=== PATIENT | male | born 1945 ===

== ENCOUNTER 2025-02-21 06:15 | Day surgery (SDC) | payer OTHER, SELFPAY ==
[2025-02-21 07:13] LABS: Glucose - Point of Care 98 mg/dl (70-99)
[2025-02-21 07:20] VITALS: BMI 30.6
[2025-02-21 07:21] VITALS: BMI 30.6
[2025-02-21 07:22] VITALS: BP 135/78
[2025-02-21 10:17] VITALS: BP 77/55
[2025-02-21 10:18] VITALS: BP 88/59
[2025-02-21 10:25] LABS: Glucose - Point of Care 116 mg/dl (70-99)
[2025-02-21 10:30] VITALS: BP 103/68
== END 2025-02-21 11:15 | disposition home or self-care (01) ==
LOC: GI 06:15
PROVIDERS: ATTENDING PHYSICIAN Internal Medicine Gastroenterology
DX: D12.0 Benign neoplasm of cecum (principal); K64.0 First degree hemorrhoids; K57.30 Diverticulosis of large intestine without perforation or abscess without bleeding; D12.2 Benign neoplasm of ascending colon; D12.6 Benign neoplasm of colon, unspecified; Z86.0101 Personal history of adenomatous and serrated colon polyps
CPT/HCPCS: 45390; 88305; 82962